=== PATIENT | female | born 1975 | race Caucasian/White ===

== ENCOUNTER → 2020-04-03 | Outpatient (CLI) | payer OTHER ==
[~2020-04-03] MED LIST: ADDE20CA3 PO; MULTCAP PO; PERCOCET PO
--- NOTE | 2020-04-06 08:09 | REP ---
BILATERAL MAMMOGRAM WITH 3D TOMOSYNTHESIS: No comparison study. Family history of breast cancer in mother at age 71, breast cancer maternal aunt and breast cancer in maternal grandmother. [facility] lifetime risk of breast cancer 31.7%. MLO and CC views of the breast bilaterally are performed with 3D tomosynthesis. Mild scattered fibroglandular elements are seen diffusely bilaterally. There is an oval nodule in the medial aspect of the right breast at about the 3 to 4-o'clock position, in the mid third of the breast, measuring 1.5 x 0.7 cm. Margins are fairly well defined but slightly lobulated. In the medial left breast, relatively anteriorly, is a smoothly marginated round nodule at about the 9-o'clock position measuring 6 mm in diameter. Just above that is an oval nodule in the upper inner aspect of the left breast measuring 11 x 5 mm. This is smoothly marginated. I see no other evidence of mass or clustered microcalcifications bilaterally. IMPRESSION: BIRADS 0: BI-RADS/ACR category 0 mammogram, Incomplete: Need additional imaging evaluation and/or prior mammograms for comparison. ACR 0 incomplete. Oval nodule medial right breast as discussed above. Two nodules medial left breast as discussed above. Recommend spot compression views and ultrasound to further evaluate. In addition, due to the elevated lifetime risk of breast cancer, supplemental screening MRI of the breast is recommended in 6 months. [place] breast density A. This mammogram was interpreted with the aid of an FDA-approved computer-aided detection system. A. Negative x-ray reports should not delay biopsy if a dominant or clinically suspicious mass is present. B. Four to eight percent of cancers are not identified by x-ray. C. Adenosis and dense breasts may obscure an underlying neoplasm. The patient states that she or he has not had a clinical breast exam in over a year. The patient letter being requested is M0.
== END ==
LOC: M WHC 10:23
PROVIDERS: ATTEND Nurse Practitioner Primary Care
DX: Z12.31 Encounter for screening mammogram for malignant neoplasm of breast (principal); N63.14 Unspecified lump in the right breast, lower inner quadrant; N63.25 Unspecified lump in the left breast, overlapping quadrants; N63.22 Unspecified lump in the left breast, upper inner quadrant; Z80.3 Family history of malignant neoplasm of breast

== ENCOUNTER → 2020-05-28 | Outpatient (CLI) | payer OTHER ==
--- NOTE | 2020-07-08 16:51 | REP ---
DIGITAL DIAGNOSTIC BILATERAL MAMMOGRAPHY WITH CAD, 3D TOMOGRAPHY, AND FOCUSED BILATERAL BREAST SONOGRAPHY HISTORY: Screening examination from 04/03/2020 was BI-RADS Category 0 incomplete because of oval nodule in the medial aspect of the right breast and two nodules in the medial aspect of the left breast. Diagnostic imaging was recommended. MAMMOGRAPHIC FINDINGS: Magnified focal spot compression CC, MLO, and true ML views of the right breast are obtained. True mediolateral views are obtained with tomography. There are small subcentimeter well-circumscribed nodules in the medial aspect of each breast. No one appears more suspicious than any other. They are well- circumscribed. No spiculation or microcalcification is seen. No worrisome skin change is appreciated. SONOGRAPHIC FINDINGS: Sonographic evaluation of the medial portion of each breast shows heterogeneous fibroglandular background echotexture. No cyst or mass is identified sonographically on either side. IMPRESSION: There are small well-circumscribed nodules in each medial breast. None appear more suspicious than any other. BI-RADS Category 2 benign findings. Repeat screening mammography recommended in one year. BIRADS 2: BI-RADS/ACR category 2 mammogram. Benign findings. This mammogram was interpreted with the assistance of an FDA approved computer- aided detection system. The patients [facility] lifetime breast cancer risk assessment is 31.7%. Patients whose lifetime risk is greater than 20% merit annual screening breast MRI scanning in addition to mammography. Breast MRI scanning is recommended in this patient in six months time. Patient letter M1. BRONSON
== END ==
LOC: M WHC 11:38
PROVIDERS: ATTEND Nurse Practitioner Primary Care
DX: R92.2 Inconclusive mammogram (principal)

== ENCOUNTER 2020-08-15 06:08 | Day surgery (SDC) | payer OTHER ==
[~2020-08-15] VITALS: Ht 167.6 cm; Wt 73.5 kg
[~2020-08-15 06:08] MED LIST changes: +LR 1,000 ML IV ONE; -PERCOCET PO; +ceFAZolin SOD 1 GM in D5W MINI-BAG PLUS 50 ML IV ONE
[2020-08-15] MEDS ORDERED: propofoL 200 MG/20 ML VIAL As Ordered ONE (07:18)
[2020-08-15] MEDS ORDERED: MIDAZOLAM INJ 2MG/2ML VIAL (J2250 PER 1MG) As Ordered ONE (07:18)
[2020-08-15] MEDS ORDERED: fentaNYL 250 MCG/5 ML INJECTION (J3010) As Ordered ONE (07:18)
[2020-08-15] MEDS ORDERED: dexameTHASONE 4 MG/ML 1ML VIAL (J1100 PER 1MG) As Ordered ONE (07:18)
[2020-08-15] MEDS ORDERED: LIDOCAINE 2% 100MG/5ML SDV (FOR ANES.) As Ordered ONE (07:18)
[2020-08-15] MEDS ORDERED: ROCURONIUM BROMIDE 50 MG/5 ML VIAL As Ordered ONE ×2 (07:18→08:32)
[2020-08-15] MEDS ORDERED: BACITRACIN PWD 50,000 UNITS VIAL As Ordered ONE (07:25)
[2020-08-15] MEDS ORDERED: BUPIVACAINE LIPOSOME/PF 1.3% 20ML VIAL (13.3MG/ML)(EXPAREL)(C9290 PER1MG) As Ordered ONE (07:25)
[2020-08-15] MEDS ORDERED: ePHEDrine SULFATE 25 MG/5 ML(5MG/ML) SYRINGE As Ordered ONE ×2 (07:58→09:13)
[2020-08-15] MEDS ORDERED: HEPARIN SOD (PORCINE) 5000UNITS/ML 1ML VIAL/SYRINGE As Ordered ONE (08:00)
[2020-08-15] MEDS ORDERED: ACETAMINOPHEN 1000MG 100ML IV BTL (OFIRMEV) (J0131 PER 10MG) As Ordered ONE (08:05)
[2020-08-15] MEDS ORDERED: LACRILUBE (AKWA TEARS) OPHTH OINT 3.5 GM As Ordered ONE (08:06)
[2020-08-15] MEDS ORDERED: SUGAMMADEX SODIUM 500 MG/5 ML VIAL (BRIDION) As Ordered ONE (08:53)
[2020-08-15] MEDS ORDERED: HYDROmorphone HCL 2 MG/ML 1ML VIAL (J1170) As Ordered ONE (08:53)
[2020-08-15] MEDS ORDERED: METOCLOPRAMIDE INJ 10MG/2ML VIAL (J2765 PER 1) As Ordered ONE (08:54)
[2020-08-15] MEDS ORDERED: ONDANSETRON 4MG/2ML VIAL As Ordered ONE (09:11)
[2020-08-15] MEDS: LR 1,000 ML IV SCH ×2 (11:07→23:39)
[2020-08-15] MEDS ORDERED: MORPHINE 4 MG/ML 1ML VIAL/SYRINGE (J2270) IV PRN (11:15)
[2020-08-15] MEDS ORDERED: ACETAMINOPHEN TAB 650MG DOSE (2X325MG) PO PRN (11:15)
[2020-08-15] MEDS ORDERED: ONDANSETRON 4MG/2ML VIAL IV PRN ×2 (11:15→11:30)
[2020-08-15] MEDS ORDERED: ceFAZolin SOD 1 GM in D5W MINI-BAG PLUS 50 ML IV SCH (11:15)
[2020-08-15] MEDS ORDERED: oxyCODONE 5MG TAB PO PRN (11:30)
[2020-08-15] MEDS ORDERED: fentaNYL 100 MCG/2 ML INJECTION (J3010) IV PRN (11:30)
[2020-08-15] MEDS ORDERED: LR 1,000 ML IV SCH (11:30)
[2020-08-15 13:30] VITALS: BP 110/66
[2020-08-15 14:00] VITALS: BP 104/67
[2020-08-15 15:00] VITALS: BP 102/66
[2020-08-15] MEDS: ceFAZolin SOD 1 GM in D5W MINI-BAG PLUS 50 ML IV SCH ×2 (16:46→23:39)
[2020-08-15] MEDS: PERCOCET 5MG/325MG TAB PO PRN ×2 (16:47→22:18)
[2020-08-15 20:00] VITALS: BP 98/63
[2020-08-16 02:18] VITALS: BP 100/65
[2020-08-16] MEDS: PERCOCET 5MG/325MG TAB PO PRN ×2 (05:40→10:40)
[2020-08-16 06:19] VITALS: BP 107/71
--- NOTE | 2020-08-16 08:24 | IPNPDOC ---
Subjective General Date Seen: Aug 16, 2020 Subject Chief Complaint/History The patient is a 44-year-old female admitted with a reason for visit of Panniculitis,Open Wound Lower Abdomen. Patient s/p extended panniculectomy POD # Doing well. Pain controlled with Percocet, ambulating. Tolerating diet. Denies nausea, vomiting, abdominal pain. Current Medications Current Medications Current Medications Medications (Trade) Dose Ordered Sig/[place] Route PRN Reason Start Time Stop Time Status Last Admin Dose Admin Acetaminophen (Tylenol Tab) 650 mg Q6H PRN PO MILD PAIN (PS 1-4) 08/15/20 11:15 Cefazolin Sodium 1 gm/Dextrose 50 ml @ 100 mls/hr Q8H IV 08/15/20 11:15 08/15/20 13:48 DC Cefazolin Sodium 1 gm/Dextrose 50 ml @ 100 mls/hr Q8H IV 08/15/20 16:00 08/15/20 23:39 Fentanyl Citrate (Sublimaze) 25 mcg Q5MP PRN IV PAIN LEVEL 5-10 08/15/20 11:30 08/15/20 12:30 DC Lactated Ringer's 1,000 ml @ 75 mls/hr [id number] IV 08/15/20 11:07 08/15/20 23:39 Lactated Ringer's 1,000 ml @ 100 mls/hr Q10H IV 08/15/20 11:30 08/15/20 12:30 DC Morphine Sulfate (Morphine Sulfate Inj) 4 mg Q4HP PRN IV SEVERE PAIN (PS 8-10) 08/15/20 11:15 Ondansetron HCl (ZOFRAN INJection) 4 mg Q4H PRN IV NAUSEA OR VOMITING 08/15/20 11:15 Ondansetron HCl (ZOFRAN INJection) 4 mg Q4HP PRN IV NAUSEA OR VOMITING 08/15/20 11:30 08/15/20 12:30 DC Oxycodone HCl (Roxicodone, Oxyir) 5 mg ASDIRECTED PRN PO PAIN LEVEL 1-4 08/15/20 11:30 08/15/20 12:30 DC Oxycodone/ Acetaminophen (Percocet 5mg/ 325mg Tablet) 2 tab Q4HP PRN PO PAIN LEVEL 6-7 08/15/20 11:15 08/16/20 05:40 Allergies Coded Allergies: No Known Allergies (Unverified , 08/08/20) Objective Physical Examination Examination GENERAL APPEARANCE:Patient seen, laying in bed, awake, alert, and oriented. Comfortable, in no acute distress. SKIN: Warm and moist. HEENT: Normocephalic, atraumatic. [place] palpebral conjunctiva, anicteric sclerae. Lips and mucosa appear moist. NECK: Supple, no thyromegaly. No obvious jugular venous distention. LUNGS: Clear to auscultation bilaterally. No wheezing appreciated. HEART: No chest wall abnormalities. Regular rate and rhythm with no murmurs appreciated. ABDOMEN: Abdomen is soft, non-tender, non-distended. Incision intact. Umbilicus viable. GARY drains with serosanguinous drainage. 25/15 cc/24hr each drain. EXTREMITIES: No edema identified. No calf tenderness. Vital Signs Vital Signs Date Time Temp Pulse Resp B/P (MAP) Pulse Ox O2 Delivery O2 Flow Rate FiO2 08/16/20 06:19 98.7 67 18 107/71 (83) 98 Room Air 08/15/20 11:25 2 I&Os I&O- Last 24 Hours up to 6 AM 08/16/20 06:00 Intake Total 2380 ml Output Total 775 ml Balance 1605 ml Impression S/p panniculectomy with rectus muscle plication POD 1. Doing well. 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 Plan / VTE VTE Prophylaxis Ordered?: Yes VIVIAN HARRISON DO Aug 16, 2020 08:24
[2020-08-16] MEDS ORDERED: PERCOCET PO (08:30)
--- NOTE | 2020-08-16 08:39 | POST-OPPD ---
Postoperative Procedure Note Date Of Procedure: Aug 15, 2020 PREOPERATIVE DIAGNOSIS: Panniculitis, open wound POSTOPERATIVE DIAGNOSIS: same FINDINGS: Panniculitis, rectus diathesis PROCEDURE: Extended panniculectomy with rectus muscle plication SURGEON: Dr Harrison ANESTHESIA: General SPECIMENS: Pannus 1593gm ESTIMATED BLOOD LOSS: 50cc REPLACED: none DRAINS: 10 mm GARY x 2 COMPLICATIONS: none POSTOPERATIVE CONDITION: stable Dictation: [id number] VIVIAN HARRISON DO Aug 16, 2020 08:39
[2020-08-16] MEDS: ceFAZolin SOD 1 GM in D5W MINI-BAG PLUS 50 ML IV SCH (08:59)
--- NOTE | 2020-08-19 07:14 | RO ---
DATE OF OPERATION: 08/15/2020 PREOPERATIVE DIAGNOSIS: Panniculitis, open wound. POSTOPERATIVE DIAGNOSIS: Panniculitis, open wound. FINDINGS: Panniculitis, rectus diathesis PROCEDURE: Extended panniculectomy with rectus muscle plication. ATTENDING SURGEON: Tiffany Cboos DO ANESTHESIA: General. SPECIMENS: Pannus, 1593 grams. ESTIMATED BLOOD LOSS: 50 mL. FLUID REPLACEMENT: DRAINS: Two 10-mm Alfa-Melgar drains. COMPLICATIONS: None. PROCEDURE: This is a 44-year-old female who has lost a significant amount of weight. She has large pannus extending past the mons pubis which harbors frequent infection and open wounds. On initial examination, the patient had an open wound in the pannus. It did heal and by the time of surgery we had it stabilized. However, she has them recurrently. The patient is scheduled for extended panniculectomy. Also, she has a moderate diathesis of the rectus muscle, which we are planning to plicate. Risks and benefits and alternatives were discussed with the patient in detail. Informed consent was confirmed. She was marked in the upright position in the holding area and then she was brought into the operating room, placed in supine position. Preoperative antibiotics were given. Sequentials were placed on the lower calves. General anesthesia is induced. Zambrano catheter was introduced in the bladder without any difficulties with yellow, clear urine present. The markings were rechecked. The lower abdominal incision was marked on stretch and was 6 cm from the labial crease. She was prepped and draped in the usual sterile fashion at that point. We started our procedure by making a lower abdominal incision in the abdominal wall. Sharp dissection with electrocautery and Peak cautery were carried out until the rectus fascia was identified. The flap was raised superiorly of the rectus fascia. The umbilicus was left in place and the rhomboid fascial incision was carried out. The inferior portion of the pannus was split in half, and then we continued our dissection to the xiphoid superiorly and costal margins laterally. The rectus muscle was reexamined. Diathesis was present. She was plicated four finger breadths width to repair the integrity of the rectus muscle. Interrupted 0-Vicryl and #1 PDS suture into a locking running was used. The suture knot was buried at the inferior portion of the incision with 3-0 Vicryl suture. The umbilicus was in good vascular condition. It was tacked to the anterior fascia. Exparel was infiltrated into the rectus sheath, 10 cc. Then, we placed the patient in the reflex position. Hemostasis was checked and confirmed and obtained. Excess tissue inferiorly to the umbilicus was measured and resected totalling 1593 grams. The flap was then reconnected to the lower abdominal part. Tension sutures were placed in the midline. The lower incision was closed with interrupted 0-Vicryl sutures, then the 3-0 Monocryl sutures, and a running 3-0 V-Loc suture. The new opening of the umbilicus was created using electrocautery. The umbilicus was brought into view and sutured into its new position with interrupted 3-0 Monocryl and 5-0 plain sutures. Two 10-mm Alfa- Melgar drains were placed through the lateral portions of the lower abdominal incision. Prineo dressing was used for the lower abdominal incision and then Xeroform was used for the umbilicus. Bulky dressing and binder were placed. The patient remained in the flexed position. Also, the Zambrano was left in place and will be removed as soon as the patient is ambulatory. The patient is extubated in the operating room without any difficulty and transferred to the recovery room in stable condition. BRONSON
== END 2020-08-16 13:25 | disposition home or self-care (01) ==
LOC: M SDC 06:08 → M MS5PR 13:08 → M SDC 08-16 13:25
PROVIDERS: ATTEND Plastic Surgery Surgery of the Hand
DX: M54.06 Panniculitis affecting regions of neck and back, lumbar region (principal); F90.9 Attention-deficit hyperactivity disorder, unspecified type; Z79.899 Other long term (current) drug therapy
CPT/HCPCS: 15830; 15847; 81025; 88304; 96361; 96365; 96366; C9290; J0131; J0690; J1100; J1170; J1644; J2250; J2405; J2765; J3010

== ENCOUNTER → 2020-10-30 | Outpatient (CLI) | payer OTHER ==
[~2020-10-30] MED LIST changes: -LR 1,000 ML IV ONE; +PERCOCET PO; +PROHANCE 279.3MG/ML 15ML VIAL As Ordered ONE; -ceFAZolin SOD 1 GM in D5W MINI-BAG PLUS 50 ML IV ONE
--- NOTE | 2020-10-30 11:40 | REP ---
INDICATION: HIGH RISK FM H/O BREAST CA. COMPARISON: Mammogram 04/03/2020 and 05/28/2020, ultrasound 05/28/2020. TECHNIQUE: Three Cyn MRI imaging was performed with a dedicated breast coil. Axial, coronal, and sagittal T1 and T2 weighted scans were obtained with and without fat saturation in the usual fashion. The study includes dynamically acquired post gadolinium-enhanced imaging with image subtraction. Maximum intensity projection and multi planar reformation imaging is included as well. This study is interpreted with the aid of VouchAR, an FDA approved computer aided detection (CAD) software program, on a dedicated breast MRI workstation. The gadolinium enhancement dose is 14 mL of intravenous ProHance. FINDINGS: There is mild scattered fibroglandular tissue diffusely bilaterally. There is no axillary adenopathy. There are few small scattered cysts in the right breast. The largest cyst is at 3 o'clock, measuring 11 mm in maximum diameter. On the left there are 3 subcentimeter hyperintense nodules on T2 which demonstrate mild enhancement with thin internal nonenhancing septations consistent with fibroadenomas. Two of these are in the upper inner left breast, and the other is more inferior at 6 o'clock.. There is mild background parenchymal enhancement bilaterally. In the upper-outer quadrant of the right breast somewhat posteriorly there is an irregular ill-defined area of focal enhancement which measures approximately 1 cm in diameter. This demonstrates mixed plateau and washout type enhancement and appears somewhat suspicious. IMPRESSION: BI-RADS category 4 suspicious. Focal irregular ill-defined enhancement in the upper outer quadrant of the right breast somewhat posteriorly, approximately 9-10 cm from the nipple. This measures approximately 1 cm in maximum diameter. There is internal plateau and washout type enhancement. Recommend second-look ultrasound of the right breast in order to identify for biopsy. Biopsy may need to be performed with MR guidance if the abnormality is not visible by ultrasound. <Electronically signed by Roger Sepulveda > 10/30/20 [id number]
== END ==
LOC: M RAD 08:35
PROVIDERS: ATTEND Family Medicine
DX: Z91.89 Other specified personal risk factors, not elsewhere classified (principal); Z80.0 Family history of malignant neoplasm of digestive organs; N60.11 Diffuse cystic mastopathy of right breast; R92.8 Other abnormal and inconclusive findings on diagnostic imaging of breast
CPT/HCPCS: A9576; C8908

== ENCOUNTER → 2020-11-12 | Outpatient (CLI) | payer OTHER ==
[~2020-11-12] MED LIST changes: -PROHANCE 279.3MG/ML 15ML VIAL As Ordered ONE
--- NOTE | 2020-11-12 15:50 | REP ---
INDICATION: 2ND LOOK RT BREAST U/S, NODULE. COMPARISON: Comparison is made with breast MRI study from 30 October 2020. High risk breast cancer screening study showed a ill-defined somewhat linear area of enhancement in the upper outer quadrant of the right breast at approximately 11 o'clock position.. TECHNIQUE: Real-time sonographic scanning is performed through the upper outer quadrant the right breast in my presence. FINDINGS: Fairly homogeneous fibroglandular background echotexture is seen. There were 2 tiny subcentimeter benign cysts which were not felt to correspond with the MRI target. Otherwise, normal sonographic features were observed. No suspicious sonographic finding. IMPRESSION: Negative second-look right upper quadrant right breast sonography. The MRI study was felt to be suspicious and MR guided needle biopsy is warranted. <Electronically signed by Jarred Gurrola > 11/12/20 [id number]
== END ==
LOC: M RAD 10:55
PROVIDERS: ATTEND Nurse Practitioner Primary Care
DX: N60.01 Solitary cyst of right breast (principal)

== ENCOUNTER → 2020-12-05 | Outpatient (CLI) | payer OTHER ==
--- NOTE | 2020-12-05 13:43 | REP ---
INDICATION: POST MRI BIOPSY FOR CLIP PLACEMENT. Ill-defined area of enhancement in the upper-outer quadrant of the right breast on MRI study approximately 10 cm from the nipple. Negative second-look sonography. No mammographic abnormality. COMPARISON: Comparison mammography May 28, 2020 and April 03, 2020. Comparison MRI study October 30, 2020. TECHNIQUE: Craniocaudal and mediolateral views of the right breast are obtained for marker clip placement. This mammogram was interpreted with the aid of an FDA-approved computer-aided detection system. FINDINGS: There is scattered fibroglandular elements. There is a 1 x 2 cm area of density adjacent to the marker clip consistent with biopsy related fluid. A marker clip is seen in good position in the upper outer quadrant of the right breast. IMPRESSION: Marker clip noted in position in the upper outer quadrant on the right post MR guided biopsy procedure. RECOMMENDATION: Pending biopsy result. <Electronically signed by Jarred Gurrola > 12/05/20 [id number]
== END ==
LOC: M WHC 12:45
PROVIDERS: ATTEND Nurse Practitioner Primary Care
DX: Z01.818 Encounter for other preprocedural examination (principal); R92.8 Other abnormal and inconclusive findings on diagnostic imaging of breast

== ENCOUNTER → 2020-12-05 | Outpatient (CLI) | payer OTHER ==
[~2020-12-05] MED LIST changes: +LIDOCAINE 1% MDV 20ML VIAL As Ordered ONE; +PROHANCE 279.3MG/ML 15ML VIAL As Ordered ONE; +SODIUM BICARBONATE 8.4% INJ 50MEQ 50 ML VIAL As Ordered ONE
[2020-12-05 10:55] VITALS: BP 113/71
--- NOTE | 2020-12-05 18:18 | REP ---
INDICATION: NODULE RIGHT BREAST. COMPARISON: None. TECHNIQUE: The procedure was performed by Sowmya Jennings [facility], under the direct supervision of Dr. Gurrola. The risks and benefits of the procedure were explained to the patient and an informed consent was obtained both verbally and written. Directly prior to the start of the procedure a formal time-out was completed in the procedure room. In anticipation of doing a lateral to medial needle approach, the lateral aspect of the patient's right breast skin was prepped with antiseptic. The patient was placed prone on the MRI imaging table in the breast imaging coil and the right breast was compressed mildly. Fourteen mL of intravenous gadolinium was administered. Fiducial marker localization, pre and two dynamic postcontrast T1 weighted fat saturation sequences of the right breast were acquired. The [employer] system was then deployed. The lesion was targeted on initial images and the lateral aspect of the skin was marked at the identified triangulated skin entry site. The lateral skin at the entry site was again prepped aseptically.. Eight mL of buffered lidocaine was administered into the skin and the breast parenchyma along the anticipated needle path. A skin morenita was then made and in 8 gauge mammotome suction assisted needle biopsy device was passed into the right breast tissue without significant technical difficulty. Six core breast biopsies were retrieved and were submitted in formalin to pathology. A marker clip was deployed. FINDINGS: Post biopsy imaging showed good clip placement and targeting. The patient tolerated the procedure well, with no immediate complications. The patient was then discharged to go and get their postprocedural two view mammography for marker clip placement. IMPRESSION: MRI guided right breast biopsy. <Electronically signed by Sowmya Jennings > 12/05/20 [id number] <Electronically signed by Jarred Gurrola > 12/05/20 0532
== END ==
LOC: M IRPRO 08:04
PROVIDERS: ATTEND Emergency Medicine
DX: N63.11 Unspecified lump in the right breast, upper outer quadrant (principal)
CPT/HCPCS: 19083; 88305; A9576

== ENCOUNTER 2021-01-28 06:07 | Day surgery (SDC) | payer OTHER, SELFPAY ==
[~2021-01-28] VITALS: Ht 167.6 cm; Wt 74.9 kg
[~2021-01-28 06:07] MED LIST changes: -LIDOCAINE 1% MDV 20ML VIAL As Ordered ONE; -PROHANCE 279.3MG/ML 15ML VIAL As Ordered ONE; -SODIUM BICARBONATE 8.4% INJ 50MEQ 50 ML VIAL As Ordered ONE
[2021-01-28] MEDS ORDERED: LR 1,000 ML IV ONE (07:00)
[2021-01-28] MEDS ORDERED: ceFAZolin SOD 1 GM in D5W MINI-BAG PLUS 50 ML IV ONE (07:00)
[2021-01-28] MEDS ORDERED: LIDOCAINE 1% MDV 20ML VIAL As Ordered ONE (07:27)
[2021-01-28] MEDS ORDERED: LIDOCAINE W/EPINEPHRINE 1% 20ML VIAL As Ordered ONE (07:27)
[2021-01-28] MEDS ORDERED: EPINEPHrine INJ 1 MG/ML 1ML AMP As Ordered ONE (07:27)
[2021-01-28] MEDS ORDERED: LIDOCAINE 2% 100MG/5ML SDV (FOR ANES.) As Ordered ONE (07:29)
[2021-01-28] MEDS ORDERED: fentaNYL 250 MCG/5 ML INJECTION (J3010) As Ordered ONE (07:29)
[2021-01-28] MEDS ORDERED: propofoL 200 MG/20 ML VIAL As Ordered ONE (07:29)
[2021-01-28] MEDS ORDERED: dexameTHASONE 4 MG/ML 1ML VIAL (J1100 PER 1MG) As Ordered ONE (07:29)
[2021-01-28] MEDS ORDERED: ROCURONIUM BROMIDE 50 MG/5 ML VIAL As Ordered ONE ×3 (07:29→10:46)
[2021-01-28] MEDS ORDERED: MIDAZOLAM INJ 2MG/2ML VIAL (J2250 PER 1MG) As Ordered ONE (07:29)
[2021-01-28] MEDS ORDERED: POVIDONE-IODINE 5% OPHTH PREP SOL 30ML As Ordered ONE ×2 (07:33→09:26)
[2021-01-28] MEDS ORDERED: ACETAMINOPHEN 1000MG 100ML IV BTL (OFIRMEV) (J0131 PER 10MG) As Ordered ONE (09:20)
[2021-01-28] MEDS ORDERED: SUGAMMADEX SODIUM 500 MG/5 ML VIAL (BRIDION) As Ordered ONE (09:20)
[2021-01-28] MEDS ORDERED: ONDANSETRON 4MG/2ML VIAL As Ordered ONE (09:20)
[2021-01-28] MEDS ORDERED: LACRILUBE (AKWA TEARS) OPHTH OINT 3.5 GM As Ordered ONE (09:22)
[2021-01-28] MEDS ORDERED: ePHEDrine SULFATE 25 MG/5 ML(5MG/ML) SYRINGE As Ordered ONE ×2 (09:48→10:48)
[2021-01-28] MEDS ORDERED: PHENYLephrine 500MCG 5ML (100MCG/ML) SYRINGE As Ordered ONE (09:48)
[2021-01-28] MEDS ORDERED: HYDROmorphone HCL 2 MG/ML 1ML VIAL (J1170) As Ordered ONE (10:16)
[2021-01-28] MEDS ORDERED: ceFAZolin 1GM VIAL (J0690 PER 500MG) As Ordered ONE (12:00)
[2021-01-28] MEDS ORDERED: POLYSPORIN OPHTH OINT 3.5 GM As Ordered ONE (12:28)
--- NOTE | 2021-01-28 12:49 | POST-OPPD ---
Postoperative Procedure Note Date Of Procedure: Jan 28, 2021 PREOPERATIVE DIAGNOSIS: Neck skin laxity, perioral rhytids POSTOPERATIVE DIAGNOSIS: same FINDINGS: skin excess neck. Tumescent 700cc, Liposuction fluid 700cc PROCEDURE: Neck lift, perioral rejuvenation with fat transfer, donor ite neck and abdomen. SURGEON: Dr Harrison ANESTHESIA: General SPECIMENS: none ESTIMATED BLOOD LOSS: 50 cc REPLACED: none DRAINS: 1/4 in titus x 2 COMPLICATIONS: none POSTOPERATIVE CONDITION: stable VIVIAN HARRISON DO Jan 28, 2021 12:49
--- NOTE | 2021-01-28 12:50 | ROOPDOC ---
[facility] Report Of Operation Report of Operation DATE OF PROCEDURE: 01/28/21 PREOPERATIVE DIAGNOSIS: Neck skin laxity, perioral rhytids POSTOPERATIVE DIAGNOSIS: same FINDINGS: skin excess neck. Tumescent 700cc, Liposuction fluid 700cc PROCEDURE: Neck lift, perioral rejuvenation with fat transfer, donor ite neck and abdomen. SURGEON: Dr Harrison ANESTHESIA: General SPECIMENS: none ESTIMATED BLOOD LOSS: 50 cc REPLACED: none DRAINS: 1/4 in Lg x 2 COMPLICATIONS: none POSTOPERATIVE CONDITION: stable Procedure: This is a 45-year-old female who has laxity on her neck status post excessive weight loss. Patient is status post extended panniculectomy previously as well. She is scheduled to have a neck lift with perioral rejuvenation using fat grafting technique. Preoperatively patient was marked in upright position. We plan to use abdominal area as a donor for fat graft. Risks benefits and alternatives of the procedure discussed with patient in details and she is ready to proceed. She was brought into the operating room, placed in supine position, preoperative antibiotics given, sequentials placed on the lower calves and general anesthesia is induced. She was prepped and draped in the usual sterile fashion. Started our procedure with making 2 stab incisions along the inferior abdominal scar and infiltrating the abdomen with tumescent solution total 600 mL. VASER liposuction was performed using 3.7 mm cannula with 3 rings at 40% power for 4 minutes. This was followed by standard suction-assisted lipectomy and fat was collected in sterile container. Fat was transferred to 20 mL syringes and left to separate by gravity. Stab incisions were closed with interrupted 4-0 Monocryl sutures. Small stab incision carried out in submental area and 70 mL of tumescent solution was infiltrated into the chin. VASER liposuction was performed using 2.9 mm 3 ring probe for 2 minutes. It was followed by suction assisted lipectomy. Total 60 cc liposuction fluid evacuated. Right pre auricular incision was carried out using 15 blade. Dissection in subcutaneous plane with facelifting scissors was done under direct vision to mandibular angle inferiorly and to mid pupillary line medially. Hemostasis obtained using electrocautery. SMAS layer identified, SMAS plication carried out 2 cm wide using interrupted 4-0 clear Nylon sutures. Skin was redraped without tension and excess measured and resected as it was fitted to its new position. Careful attention to tragus was done to eliminate the pulling. Galax suture of 3-0 Prolene placed in the inferior posterior part of the ear. The rest of the incision was closed with interrupted 4-0 Monocryl barred sutures and 5-0 Monocryl interrupted sutures. 1/4 in silicon Lg drain left in place. Left pre auricular incision was carried out using 15 blade. Dissection in subcutaneous plane with facelifting scissors was done under direct vision to mandibular angle inferiorly and to mid pupillary line medially. Hemostasis obtained using electrocautery. SMAS layer identified, SMAS plication carried out 2 cm wide using interrupted 4-0 clear Nylon sutures. Skin was redraped without tension and excess measured and resected as it was fitted to its new position. Careful attention to tragus was done to eliminate the pulling. Galax suture of 3-0 Prolene placed in the inferior posterior part of the ear. The rest of the incision was closed with interrupted 4-0 Monocryl barred sutures and 5-0 Monocryl interrupted sutures. 1/4 in silicon [place] drain left in place. Good symmetry was achieved. Fat was prepped on the back table, rolled and placed into 3 cc syringes. Small stab incision made along the nasolabial fold. 3 cc of fat infiltrated along the fold bilaterally. 2 cc on each marionette line. 2 cc into the upper and lower lips. Good symmetry achieved. Xeroform dressing, bulky dressing and chin strap applied. Abdominal binder placed. Patient extubated in the operating room. Transferred to recovery room in stable condition. VIVIAN HARRISON DO Jan 28, 2021 12:50
[2021-01-28] MEDS ORDERED: OXYC1TAB23 PO (12:52)
[2021-01-28] MEDS ORDERED: fentaNYL 100 MCG/2 ML INJECTION (J3010) IV PRN (13:00)
[2021-01-28] MEDS ORDERED: PERCOCET 5MG/325MG TAB PO PRN ×2 (13:00→14:35)
[2021-01-28] MEDS ORDERED: LR 1,000 ML IV SCH (13:00)
[2021-01-28] MEDS ORDERED: ONDANSETRON 4MG/2ML VIAL IV PRN (13:00)
[2021-01-28] MEDS ORDERED: METOCLOPRAMIDE INJ 10MG/2ML VIAL (J2765 PER 1) IV PRN (13:00)
[2021-01-28 16:27] VITALS: BP 100/58
== END 2021-01-28 16:30 | disposition home or self-care (01) ==
LOC: M SDC 06:07
PROVIDERS: ATTEND Plastic Surgery Surgery of the Hand
DX: L98.7 Excessive and redundant skin and subcutaneous tissue (principal); L57.4 Cutis laxa senilis; F90.9 Attention-deficit hyperactivity disorder, unspecified type; K57.92 Diverticulitis of intestine, part unspecified, without perforation or abscess without bleeding; Z79.899 Other long term (current) drug therapy
CPT/HCPCS: 15773; 15828; 15876; 81025; J0131; J0171; J0690; J1100; J1170; J2250; J2370; J2405; J3010